=== PATIENT | male | born 1955 | race African-American/Black ===

== ENCOUNTER 2019-10-15 14:26 | Emergency (ER) | payer MEDICARE, OTHER ==
[2019-10-15 15:02] LABS: Bilirubin Negative (Negative); Blood, Urine Large (Negative); Clarity Cloudy (Clear); Glucose, Urine (Dipstick) Negative (Negative); Leukocyte Large (Negative); Nitrite Positive (Negative); Protein, Urine (Dipstick) 100 mg/dL (Neg-Trace); Urobilinogen 0.2 mg/dL (Less than 2)
--- NOTE | 2019-10-15 15:14 | RAD ---
PORTABLE CHEST: 10/15/19 HISTORY: Sepsis activation. Heart size and mediastinum within normal limits. Lungs appear clear of any infiltrates. Bony synostos is across some of the right hips are noted. IMPRESSION: No active intrathoracic disease. POS: [facility]
[2019-10-15 15:16] LABS: Bacteria/HPF 4+ HPF (None Seen); Mucous/LPF Rare LPF (<2+); WBC/HPF Greater Than 50 HPF (0-3)
[2019-10-15] MEDS ORDERED: Sodium Chloride 0.9% 2,000 ML ONE (15:39)
[2019-10-15] MEDS ORDERED: Acetaminophen 500 MG TAB ONE (15:53)
[2019-10-15] MEDS ORDERED: cefTRIAXone\\ROCEPHIN 1 GM VIAL ONE (15:53)
[2019-10-15] MEDS ORDERED: Morphine 4 MG/ML VIAL ONE (17:30)
[2019-10-15 18:06] LABS: ALT (SGPT) 28 U/L (8-55); AST (SGOT) 52 U/L (5-34); Albumin 2.6 g/dL (3.4-4.8); Alkaline Phosphatase 229 U/L (40-110); Anion Gap 22 mmol/L (10-20); BUN (Urea Nitrogen) 26 mg/dL (8.4-25.7); Bilirubin, Total 0.8 mg/dL (0.2-1.2); Calc. Creatinine Clearance 0 mL/min (70-130); Calcium 7.8 mg/dL (7.8-10.44); Carbon Dioxide 10 mmol/L (23-31); Chloride 109 mmol/L (98-107); Estimated GFR-MDRD 65; Globulin 5.7 g/dL (2.4-3.5); Glucose 64 mg/dL (80-115); Potassium 5.6 mmol/L (3.5-5.1); Protein, Total 8.3 g/dL (5.8-8.1); Sodium 135 mmol/L (136-145)
[2019-10-15] MEDS ORDERED: Sodium Chloride 0.9% 1,000 ML ONE ×2 (18:27→19:51)
[2019-10-15] MEDS ORDERED: Sodium Chloride 0.9% 500 ML ONE (19:52)
[2019-10-15 20:09] LABS: Hemoglobin 6.5 g/dL (14.0-18.0); Mean Corpuscular HGB CONC 29.3 g/dL (32.0-36.0); Mean Corpuscular Hemoglobin 26.2 pg (27.0-31.0); Mean Corpuscular Volume 89.6 fL (78.0-98.0); Mean Platelet Volume 5.7 fL (7.4-10.4); Platelet Count 396 thou/uL (130-400); Red Blood Cell (RBC) Count 2.48 mill/uL (4.70-6.10); White Blood Cell (WBC) Count 26.8 thou/uL (4.8-10.8)
[2019-10-15 20:17] LABS: Lactic Acid 0.9 mmol/L (0.5-2.2)
[2019-10-15 20:34] LABS: Anisocytosis SLIGHT = 6-15 cells (100X) (0-5/hpf); Band 15 % (5-11); Hypochromia MODERATE=16-30 cells (100X) (0-5/hpf); Lymphocytes 17 % (21-51); MDiff Complete? YES; Monocytes 7 % (0-10); Neutrophil 61 % (42-75); Platelet Morphology Comment Appears Adequate; Schistocytes SLIGHT = 2-5 cells (100X) (0-1/hpf); Target Cells SLIGHT = 2-5 cells (100X) (0-1/hpf); Tear Drops SLIGHT = 2-5 cells (100X) (0-1/hpf)
== END 2019-10-15 21:35 | disposition short-term general hospital (02) ==
LOC: MADERS 14:26 → MERGE 14:26 → MADERS 21:35
DX: A41.9 Sepsis, unspecified organism (principal); N39.0 Urinary tract infection, site not specified; E87.2 Acidosis; R00.0 Tachycardia, unspecified; F17.210 Nicotine dependence, cigarettes, uncomplicated; Z79.891 Long term (current) use of opiate analgesic; Z79.899 Other long term (current) drug therapy
CPT/HCPCS: 71045; 80053; 81003; 81015; 83605; 85025; 87040; 87077; 87086; 87149; 87186; 93005; 96361; 96365; 96375; J0696; J2270; J3370; J7050

== ENCOUNTER 2020-09-29 13:52 | Outpatient (CLI) | payer MEDICARE, MEDICAID ==
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
--- NOTE | 2020-09-29 17:52 | RAD ---
LEFT ANKLE: 09/29/20 Three views. HISTORY: Pain. 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 Talus shows anterior dislocation in regard to the tibia. There is gas density within the joint space and there is soft tissue swelling. No definite fracture identified. There are chronic osseous changes. IMPRESSION: Dislocation and degeneration change at the tibiotalar joint. Soft tissue swelling and gas density wit hin the soft tissues. POS: [facility]
== END 2020-09-29 13:53 | disposition home or self-care (01) ==
LOC: MADRAD 13:52
PROVIDERS: ATTEND Orthopaedic Surgery
DX: M25.571 Pain in right ankle and joints of right foot (principal); S93.04XA Dislocation of right ankle joint, initial encounter; M19.071 Primary osteoarthritis, right ankle and foot; M79.89 Other specified soft tissue disorders; M19.171 Post-traumatic osteoarthritis, right ankle and foot; M85.80 Other specified disorders of bone density and structure, unspecified site

== ENCOUNTER 2021-04-18 19:56 | Outpatient (CLI) | payer MEDICARE, MEDICAID ==
[2021-04-18 20:34] LABS: Bilirubin Negative (Negative); Blood, Urine Moderate (Negative); Clarity Turbid (Clear); Glucose, Urine (Dipstick) Negative (Negative); Ketone, Urine Negative (Negative); Leukocyte Large (Negative); Nitrite Positive (Negative); Protein, Urine (Dipstick) 100 mg/dL (Neg-Trace); Urobilinogen 0.2 mg/dL (Less than 2); pH, Urine 8.5 (5.0-9.0)
== END 2021-04-18 19:57 | disposition home or self-care (01) ==
LOC: MADLAB 19:56
DX: N39.0 Urinary tract infection, site not specified (principal)
CPT/HCPCS: 81003; 87077; 87086; 87186

== ENCOUNTER 2021-05-01 13:35 | Outpatient (CLI) | payer MEDICARE, MEDICAID ==
[2021-05-01 13:51] LABS: Bilirubin Negative (Negative); Blood, Urine Moderate (Negative); Clarity Clear (Clear); Glucose, Urine (Dipstick) Negative (Negative); Ketone, Urine Negative (Negative); Leukocyte Large (Negative); Nitrite Positive (Negative); Protein, Urine (Dipstick) 30 mg/dL (Neg-Trace); Specific Gravity, Urine 1.015 (1.005-1.030); Urobilinogen 0.2 mg/dL (Less than 2)
== END 2021-05-01 13:36 | disposition home or self-care (01) ==
LOC: MADLAB 13:35
DX: N39.0 Urinary tract infection, site not specified (principal)
CPT/HCPCS: 81003; 87086; 87186

== ENCOUNTER 2022-02-20 15:03 | Outpatient (CLI) | payer MEDICARE, MEDICAID ==
[2022-02-20 17:53] LABS: Bilirubin Negative (Negative); Blood, Urine Small (Negative); Clarity Clear (Clear); Glucose, Urine (Dipstick) Negative (Negative); Ketone, Urine Negative (Negative); Leukocyte Small (Negative); Nitrite Negative (Negative); Protein, Urine (Dipstick) 30 mg/dL (Neg-Trace); Specific Gravity, Urine 1.015 (1.005-1.030); Urobilinogen 0.2 mg/dL (Less than 2)
[2022-02-20 17:54] LABS: pH, Urine Greater/Equal 9.0 (5.0-9.0)
[2022-02-20 18:17] LABS: Bacteria/HPF Rare-Few HPF (None Seen); RBC/HPF 0-3 HPF (0-3); Squamous Epithelial 0-3 HPF (0-3); Triple Phosphate Crystal 4+ HPF (None Seen); WBC/HPF 0-3 HPF (0-3)
== END 2022-02-20 15:04 | disposition home or self-care (01) ==
LOC: MADLAB 15:03
DX: L89.154 Pressure ulcer of sacral region, stage 4 (principal)
CPT/HCPCS: 81001; 87086

== ENCOUNTER 2022-03-22 11:02 | Emergency (ER) | payer MEDICARE, MEDICAID ==
[2022-03-22 11:42] LABS: Bilirubin Negative (Negative); Blood, Urine Large (Negative); Glucose, Urine (Dipstick) Negative (Negative); Ketone, Urine Negative (Negative); Leukocyte Large (Negative); Nitrite Negative (Negative); Protein, Urine (Dipstick) 100 mg/dL (Neg-Trace); Specific Gravity, Urine 1.015 (1.005-1.030); Urobilinogen 0.2 mg/dL (Less than 2)
[2022-03-22 11:43] LABS: Clarity Cloudy (Clear)
[2022-03-22 11:45] LABS: Bacteria/HPF Rare-Few HPF (None Seen); RBC/HPF Greater than 50 HPF (0-3); Squamous Epithelial 0-3 HPF (0-3); WBC/HPF Greater Than 50 HPF (0-3); Yeast-Budding 3+ HPF (None Seen); Yeast-Hyphae 3+ HPF (None Seen)
[2022-03-22 11:46] LABS: Mucous/LPF 1+ LPF (<2+)
[2022-03-22 12:13] LABS: Hemoglobin 7.2 g/dL (14.0-18.0); Mean Corpuscular HGB CONC 29.1 g/dL (32.0-36.0); Mean Corpuscular Hemoglobin 27.8 pg (27.0-31.0); Mean Corpuscular Volume 95.6 fL (78.0-98.0); Platelet Count 397 thou/uL (130-400); Red Blood Cell (RBC) Count 2.58 mill/uL (4.70-6.10); White Blood Cell (WBC) Count 10.6 thou/uL (4.8-10.8)
[2022-03-22 12:14] LABS: Manual Diff?? YES; Mean Platelet Volume 5.6 fL (7.4-10.4)
[2022-03-22 12:22] LABS: ALT (SGPT) 14 U/L (8-55); AST (SGOT) 14 U/L (5-34); Albumin 2.7 g/dL (3.4-4.8); Alkaline Phosphatase 203 U/L (40-110); Anion Gap 14 mmol/L (10-20); BUN (Urea Nitrogen) 35 mg/dL (8.4-25.7); Bilirubin, Total 0.2 mg/dL (0.2-1.2); Calc. Creatinine Clearance 0 mL/min (70-130); Calcium 8.9 mg/dL (7.8-10.44); Carbon Dioxide 12 mmol/L (23-31); Chloride 111 mmol/L (98-107); Estimated GFR 64; Globulin 6.5 g/dL (2.4-3.5); Glucose 79 mg/dL (80-115); Potassium 5.8 mmol/L (3.5-5.1); Protein, Total 9.2 g/dL (5.8-8.1); Sodium 131 mmol/L (136-145)
[2022-03-22 12:33] LABS: Lymphocytes 24 % (21-51); MDiff Complete? YES; Neutrophil 70 % (42-75)
[2022-03-22 12:34] LABS: Anisocytosis SLIGHT = 6-15 cells (100X) (0-5/hpf); Monocytes 6 % (0-10); Platelet Morphology Comment Appears Adequate
[2022-03-22 13:04] LABS: Magnesium 1.6 mg/dL (1.6-2.6)
[2022-03-22] MEDS ORDERED: cefTRIAXone\\ROCEPHIN 1 GM VIAL ONE (13:58)
[2022-03-22] MEDS ORDERED: Albuterol Sulfate 2.5 mg/0.5 ml Neb ONE (13:58)
[2022-03-22] MEDS ORDERED: Dextrose 50% Abboject 50 ML SYRINGE ONE ×2 (13:58→16:41)
[2022-03-22] MEDS ORDERED: Sodium Chloride 0.9% 1,000 ML ONE (13:58)
[2022-03-22] MEDS ORDERED: Sodium Chloride 0.9% 100 ML ONE (13:58)
[2022-03-22] MEDS ORDERED: Insulin Regular 300 UNITS/3 ML VIAL ONE (13:58)
[2022-03-22] MEDS ORDERED: Albuterol Sulfate 2.5 mg/3 ml Neb ONE (14:00)
== END 2022-03-22 19:06 | disposition short-term general hospital (02) ==
LOC: MADERS 11:02
DX: N39.0 Urinary tract infection, site not specified (principal); E87.5 Hyperkalemia; F17.210 Nicotine dependence, cigarettes, uncomplicated
CPT/HCPCS: 36415; 36416; 80053; 81001; 83605; 83735; 85025; 87077; 87086; 87186; 93005; 96361; 96365; 96375; 96376; J0696; J1815; J3490; J7050; J7611; J7999

== ENCOUNTER 2022-04-17 07:05 | Emergency (ER) | payer MEDICARE, MEDICAID ==
[2022-04-17 09:00] LABS: Hemoglobin 10.3 g/dL (14.0-18.0); Mean Corpuscular HGB CONC 30.2 g/dL (32.0-36.0); Mean Corpuscular Hemoglobin 27.6 pg (27.0-31.0); Mean Corpuscular Volume 91.3 fL (78.0-98.0); Mean Platelet Volume 5.7 fL (7.4-10.4); Platelet Count 388 thou/uL (130-400); RBC Distribution Width 17.1 % (11.5-14.5); Red Blood Cell (RBC) Count 3.73 mill/uL (4.70-6.10); White Blood Cell (WBC) Count 21.6 thou/uL (4.8-10.8)
[2022-04-17 09:09] LABS: Bilirubin Negative (Negative); Blood, Urine Large (Negative); Clarity Slightly Cloudy (Clear); Glucose, Urine (Dipstick) Negative (Negative); Ketone, Urine Trace mg/dL (Negative); Leukocyte Large (Negative); Nitrite Positive (Negative); Protein, Urine (Dipstick) 100 mg/dL (Neg-Trace); Specific Gravity, Urine 1.025 (1.005-1.030); Urobilinogen 0.2 mg/dL (Less than 2)
[2022-04-17 09:10] LABS: Squamous Epithelial 0-3 HPF (0-3); WBC/HPF Greater than 50 HPF (0-3)
[2022-04-17 09:11] LABS: Bacteria/HPF 3+ HPF (None Seen)
[2022-04-17 09:18] LABS: ALT (SGPT) 12 U/L (8-55); AST (SGOT) 10 U/L (5-34); Albumin 2.9 g/dL (3.4-4.8); Alkaline Phosphatase 102 U/L (40-110); Anion Gap 24 mmol/L (10-20); BUN (Urea Nitrogen) 66 mg/dL (8.4-25.7); Bilirubin, Total 0.2 mg/dL (0.2-1.2); Calc. Creatinine Clearance 0 mL/min (70-130); Calcium 8.9 mg/dL (7.8-10.44); Carbon Dioxide 10 mmol/L (23-31); Chloride 97 mmol/L (98-107); Estimated GFR 9; Globulin 6.3 g/dL (2.4-3.5); Glucose 97 mg/dL (80-115); Magnesium 1.3 mg/dL (1.6-2.6); Potassium 6.3 mmol/L (3.5-5.1); Protein, Total 9.2 g/dL (5.8-8.1); Sodium 125 mmol/L (136-145)
[2022-04-17] MEDS ORDERED: Sodium Chloride 0.9% 250 ML 250 ML ONE (09:20)
[2022-04-17] MEDS ORDERED: Sodium Chloride 0.9% 2,000 ML ONE (09:20)
[2022-04-17] MEDS ORDERED: Sodium Chloride 0.9% 500 ML ONE (09:20)
[2022-04-17] MEDS ORDERED: Sodium Chloride 0.9% 100 ML ONE (09:20)
[2022-04-17] MEDS ORDERED: Cefepime 2 GM VIAL ONE (09:20)
[2022-04-17 09:25] LABS: Anisocytosis SLIGHT = 6-15 cells (100X) (0-5/hpf); Band 8 % (5-11); Eosinophils 1 % (0-10); Lymphocytes 15 % (21-51); MDiff Complete? YES; Manual Diff?? YES; Monocytes 3 % (0-10); Neutrophil 73 % (42-75); Platelet Morphology Comment Appears Adequate
[2022-04-17] MEDS ORDERED: Calcium Gluc 4.6 MEQ/10 ML (100 MG/ML) ONE (09:36)
[2022-04-17] MEDS ORDERED: Magnesium 2 GM/50 ML BAG (IN WATER) ONE (09:36)
[2022-04-17] MEDS ORDERED: Dextrose 50% Abboject 50 ML SYRINGE ONE (09:42)
[2022-04-17] MEDS ORDERED: Insulin Regular 300 UNITS/3 ML VIAL ONE (09:42)
[2022-04-17] MEDS ORDERED: Albuterol Sulfate 2.5 mg/3 ml Neb ONE (09:42)
== END 2022-04-17 10:55 | disposition short-term general hospital (02) ==
LOC: MADERS 07:05
DX: N39.0 Urinary tract infection, site not specified (principal); R65.20 Severe sepsis without septic shock; N17.9 Acute kidney failure, unspecified; E87.5 Hyperkalemia; E83.42 Hypomagnesemia; D50.0 Iron deficiency anemia secondary to blood loss (chronic); G82.20 Paraplegia, unspecified; F17.210 Nicotine dependence, cigarettes, uncomplicated; Z79.899 Other long term (current) drug therapy
CPT/HCPCS: 80053; 82962; 83605; 83735; 83880; 84484; 85025; 87040; 87077; 87086; 93005; J0610; 36415; 36416; 81003; 81015; 87186; 96365; 96368; 96375; J0692; J1815; J3370; J3475; J3490; J7030; J7050; J7611; J7999

== ENCOUNTER 2022-06-24 04:30 | Emergency (ER) | payer MEDICARE, MEDICAID ==
[2022-06-24 05:58] LABS: INR-International Normal Ratio 1.1; Prothrombin Time 14.3 sec (12.0-14.7)
[2022-06-24 06:01] LABS: #Basophils 0.2 thou/uL (0.0-0.2); #Lymphocytes 1.9 thou/uL (1.20-3.40); #Neutrophils 13.8 thou/uL (1.40-6.50); %Basophils 1.2 % (0.0-1.0); %Lymphocytes 10.9 % (21.0-51.0); %Monocytes 6.2 % (0.0-10.0); %Neutrophils 81.7 % (42.0-75.0); Hypochromia SLIGHT = 6-15 cells (100X) (0-5/hpf); MDiff Complete? YES; Mean Corpuscular HGB CONC 30.9 g/dL (32.0-36.0); Mean Corpuscular Hemoglobin 29.4 pg (27.0-31.0); Mean Corpuscular Volume 95.2 fl (78.0-98.0); Mean Platelet Volume 6.4 fL (7.4-10.4); Microcytosis SLIGHT = 6-15 cells (100X) (0-5/hpf); Platelet Clumps MODERATE; Platelet Count 209 thou/uL (130-400); Platelet Morphology Comment Appears Increased; RBC Distribution Width 18.7 % (11.5-14.5); Red Blood Cell (RBC) Count 3.07 mill/uL (4.70-6.10); White Blood Cell (WBC) Count 16.9 thou/uL (4.8-10.8)
[2022-06-24 06:08] LABS: ALT (SGPT) 11 U/L (8-55); Albumin 3.2 g/dL (3.4-4.8); Alkaline Phosphatase 99 U/L (40-110); Anion Gap 17 mmol/L (10-20); BUN (Urea Nitrogen) 51 mg/dL (8.4-25.7); Bilirubin, Total 0.2 mg/dL (0.2-1.2); Calc. Creatinine Clearance 0 mL/min (70-130); Calcium 8.3 mg/dL (7.8-10.44); Carbon Dioxide 18 mmol/L (23-31); Chloride 112 mmol/L (98-107); Estimated GFR 53; Globulin 4.9 g/dL (2.4-3.5); Glucose 97 mg/dL (80-115); Potassium 6.5 mmol/L (3.5-5.1); Protein, Total 8.1 g/dL (5.8-8.1); Sodium 140 mmol/L (136-145)
[2022-06-24 06:25] LABS: AST (SGOT) 22 U/L (5-34)
[2022-06-24] MEDS ORDERED: Albuterol Sulfate 2.5 mg/0.5 ml Neb ONE (09:04)
[2022-06-24] MEDS ORDERED: Dextrose 50% Abboject 50 ML SYRINGE ONE (09:04)
[2022-06-24] MEDS ORDERED: Albuterol Sulfate 2.5 mg/3 ml Neb ONE (09:04)
[2022-06-24] MEDS ORDERED: Sodium Chloride 0.9% 1,000 ML ONE (09:04)
[2022-06-24] MEDS ORDERED: Insulin Regular 300 UNITS/3 ML VIAL ONE (09:04)
[2022-06-24 10:02] LABS: Blood, Urine Large (Negative); Clarity Cloudy (Clear); Glucose, Urine (Dipstick) Negative (Negative); Leukocyte Large (Negative); Protein, Urine (Dipstick) > or equal to 300 mg/dL (Neg-Trace)
[2022-06-24 10:03] LABS: Bilirubin Unable to Interpret (Negative); Urobilinogen UNABLE TO INTERPRET mg/dL (Less than 2)
[2022-06-24 10:04] LABS: Ketone, Urine Unable to Interpret mg/dL (Negative)
[2022-06-24 10:05] LABS: Nitrite Unable to Interpret (Negative)
[2022-06-24 10:06] LABS: Bacteria/HPF 1+ HPF (None Seen); RBC/HPF Greater than 50 HPF (0-3); Squamous Epithelial None Seen HPF (0-3); WBC/HPF Greater Than 50 HPF (0-3)
[2022-06-24] MEDS ORDERED: Sodium Bicarb 50 MEQ/50 ML Abboject 8.4% SYRINGE ONE (10:26)
== END 2022-06-24 11:50 | disposition short-term general hospital (02) ==
LOC: MADERS 04:30
DX: E87.5 Hyperkalemia (principal); R31.9 Hematuria, unspecified; D50.0 Iron deficiency anemia secondary to blood loss (chronic); F17.210 Nicotine dependence, cigarettes, uncomplicated; G82.20 Paraplegia, unspecified; N18.9 Chronic kidney disease, unspecified; W18.30XA Fall on same level, unspecified, initial encounter; Z93.3 Colostomy status; Z89.512 Acquired absence of left leg below knee; Z89.511 Acquired absence of right leg below knee
CPT/HCPCS: 70450; 72125; 74176; 80053; 81003; 81015; 83605; 85025; 85610; 87086; 93005; 96365; 96375; J1815; J1956; J7050; J7611; J7999